=== PATIENT | male | born 1950 | race Hispanic/Latino ===

== ENCOUNTER → 2024-08-07 | Day surgery (SDC) | payer MEDICARE ==
[2024-07-30 11:26] LABS: BASOPHILS % 0.4 % (0.0-1.0); EOSINOPHILS # (AUTO) 0.1 (0.0-0.4); EOSINOPHILS % 0.8 % (0.0-6.0); HEMATOCRIT 42.8 % (38.2-49.6); HEMOGLOBIN 14.1 g/dL (14.0-18.0); LYMPHOCYTES # (AUTO) 2.1 (1.0-3.2); LYMPHOCYTES % 22.7 % (18.0-39.1); MEAN CORPUSCULAR HEMOGLOBIN 30.7 pg (28-32); MEAN CORPUSCULAR HGB CONC 32.9 g/dL (31-35); MONOCYTES # (AUTO) 0.7 (0.2-0.8); MONOCYTES % 7.5 % (4.4-11.3); NEUTROPHILS # (AUTO) 6.2 (2.1-6.9); NEUTROPHILS % 68.1 % (38.7-80.0); PLATELET COUNT 185 x10e3/uL (140-360); RED CELL DISTRIBUTION WIDTH 13.2 % (11.7-14.4); WHITE BLOOD COUNT 9.17 x10e3/uL (4.8-10.8)
[~2024-08-07] MED LIST: ALLOPURINOL300 MG PO; IRBESARTAN150 MG PO; LIPITOR10 MG PO; PROPOFOL IV EMULSION 10 MG/ML 20 ML VIAL ONE
[2024-08-07] MEDS: LACTATED RINGER'S 1,000 ML ONE (06:40)
[2024-08-07 07:33] VITALS: TEMP 97.1
[2024-08-07 08:00] VITALS: BP 153/84; PULSE 70; RESP 15; O2SAT 99
== END | disposition home or self-care (01) ==
LOC: OR 05:58
PROVIDERS: ATTEND Internal Medicine Gastroenterology
DX: Z09 Encounter for follow-up examination after completed treatment for conditions other than malignant neoplasm (principal); Z86.0100 Personal history of colon polyps, unspecified; K57.30 Diverticulosis of large intestine without perforation or abscess without bleeding; K64.8 Other hemorrhoids; I10 Essential (primary) hypertension; E78.00 Pure hypercholesterolemia, unspecified; Z71.3 Dietary counseling and surveillance; Z68.30 Body mass index [BMI] 30.0-30.9, adult; R94.31 Abnormal electrocardiogram [ECG] [EKG]; Z01.810 Encounter for preprocedural cardiovascular examination; Z01.812 Encounter for preprocedural laboratory examination; Z87.891 Personal history of nicotine dependence; Z85.828 Personal history of other malignant neoplasm of skin; Z79.899 Other long term (current) drug therapy
CPT/HCPCS: 36415; 45378; 85025; 93005; J2704; J7121